=== PATIENT | male | born 1990 | race Caucasian/White ===

== ENCOUNTER 2018-04-15 11:02 | Emergency (ER) | payer SELFPAY ==
[2018-04-15 11:06] VITALS: Ht 172.7 cm
[2018-04-15] MEDS ORDERED: OXYCODONE HCL IR 5 MG TAB (IMMEDIATE RELEASE) PO STA (11:12)
--- NOTE | 2018-04-15 12:06 | DIAGNOSTIC IMAGING REPORT ---
RIGHT KNEE 2 VIEWS HISTORY: R knee trauma COMPARISON: None. FINDINGS: There is no fracture or dislocation. Prepatellar soft tissue swelling and a small knee effusion. Mild thickening at the distal quadriceps tendon. No radiopaque foreign bodies. IMPRESSION: 1. No fracture or dislocation within the right knee. 2. Prepatellar soft tissue thickening and a small knee effusion. 3. Mild thickening of the distal quadriceps tendon. This could represent a quadriceps tendon injury. Electronically signed by: Travis Ngo M.D. 04/15/2018 12:05 PM Dictated Date/Time: 04/15/2018 12:03 PM
[2018-04-15] MEDS ORDERED: OXYC-90 PO (12:23)
--- NOTE | 2018-04-15 12:39 | EMERGENCY ROOM VISIT NOTE ---
History First contact with patient: 11:07 Chief Complaint: LEG PAIN,LEG INJURY Stated Complaint: TRUSS FELL ON LEG History of Present Illness The patient is a 27 year old male who presents to the Emergency Room with complaints of severe right knee pain. The patient reports that he was helping to set a truss when a support board collapsed, and the truss fell approximately 15 feet onto the right knee. The patient reports mild left knee discomfort as well, but is able to apply weight to the leg without any pain. He denies any injury to the head, neck, chest or abdomen. He reports mild discomfort in the left flank region. He denies any focal back or rib pain. He denies any paresthesias or numbness of the right foot or toes, and rates his discomfort an 8 out of 10. Tetanus immunization is up-to-date. Review of Systems 10 system review was performed and was negative except for pertinent positives and negatives as indicated in history of present illness Past Medical/Surgical History Medical Problems: (1) No significant past medical history Surgical Problems: (1) No history of previous surgery Family History Unremarkable Social History Smoking Status: Never Smoker Alcohol Use: none Marital Status: Housing Status: lives with family Occupation Status: employed Current/Historical Medications Scheduled PRN Oxycodone Ir (Roxicodone Ir), 1 TAB PO Q4H PRN for Pain Physical Exam Vital Signs Date Time Temp Pulse Resp B/P (MAP) Pulse Ox O2 Delivery O2 Flow Rate FiO2 04/15/18 11:06 36.8 97 20 119/67 94 Room Air Physical Exam CONSTITUTIONAL: Healthy and well nourished. Alert and oriented X 3 with positive affect. Patient appears in moderate discomfort. HEENT: Normocephalic, atraumatic. Pupils equal, round and reactive. NECK: Full active range of motion without discomfort. RESPIRATORY: Clear to auscultation bilaterally with no wheezing, crackles, rhonchi or stridor. CARDIOVASCULAR: Regular rate and rhythm with no murmurs, rubs or gallops. GASTROINTESTINAL: Bowel sounds present in all quadrants. Soft and nontender to palpation. MUSCULOSKELETAL: Examination shows a 3+ right joint effusion. There is a superficial abrasion to the anterior knee. I was unable to perform any range of motion because of discomfort. He has mild tenderness to palpation over the medial and lateral joint line. Varus and valgus stress does not show any obvious instability. Quadriceps and patellar tendons are palpable, with no focal tenderness to palpation over the quadriceps or patellar tendons. Patient has no tenderness to palpation about the mid to distal femur or proximal leg region. Pedal pulses are intact. Patient does have mild tenderness to palpation over the left flank soft tissue. He has no tenderness to palpation across the posterior ribs or central thoracolumbar spine. Examination of the left knee shows mild erythema across the anterior aspect of the knee, otherwise has no pain with flexion and extension. Ligamentous exam is normal. INTEGUMENTARY: No rash or other significant dermatologic conditions noted. NEUROLOGIC: Right foot and toes are sensory intact. Medical Decision & Procedures ER Provider Diagnostic Interpretation: My interpretation of right knee x-rays shows a joint effusion without any obvious fracture or dislocation. Radiologist does question thickening of the quadriceps tendon. Radiologist report is as follows: RIGHT KNEE 2 VIEWS HISTORY: R knee trauma COMPARISON: None. FINDINGS: There is no fracture or dislocation. Prepatellar soft tissue swelling and a small knee effusion. Mild thickening at the distal quadriceps tendon. No radiopaque foreign bodies. IMPRESSION: 1. No fracture or dislocation within the right knee. 2. Prepatellar soft tissue thickening and a small knee effusion. 3. Mild thickening of the distal quadriceps tendon. This could represent a quadriceps tendon injury. Medications Administered Medications (Trade) Dose Ordered Sig/Perla Route Start Time Stop Time Status Last Admin Dose Admin Oxycodone HCl (Roxicodone Immediate Rel Tab) 10 mg NOW STAT PO 04/15/18 11:12 04/15/18 11:13 DC 04/15/18 11:25 10 MG ED Course Patient history and physical exam were performed. Nurse's notes were reviewed. Vital signs were reviewed and were normal. The patient was administered OxyIR 10 mg for pain. He refused any intramuscular or intravenous analgesics. An ice pack was also applied. X-rays of the right knee were normal. The radiologist questions thickening of the distal quadriceps tendon region. It is noted that the patient has no tenderness to palpation or obvious palpable defect over this region. A knee immobilizer and crutches were dispensed. The patient was encouraged to intermittently apply ice and elevate the knee for swelling. Ibuprofen and Tylenol in alternating fashion for baseline pain relief. The patient was provided a prescription for OxyIR as needed for breakthrough pain. The patient was given contact information for [facility] for further follow-up and management. The patient voiced understanding of all discharge instructions, was happy with plan of care, and rated his discomfort a 3 out of 10 at the time of discharge. Medical Decision Blood Pressure Screening Patient's blood pressure: Normal blood pressure Impression Primary Impression: Right knee injury Additional Impressions: Back contusion Contusion of left knee Departure Information Prescriptions Oxycodone Ir (Roxicodone Ir) 5 Mg Tab 1 TAB PO Q4H Y for Pain, #15 TAB For Initial Treatment Prov: Francisco J Do PA 04/15/18 Patient Instructions [facility] Problem Qualifiers
[2018-04-15 12:54] VITALS: BP 139/65; PULSE 85; TEMP 36.8; O2SAT 96
== END 2018-04-15 13:08 | disposition home or self-care (01) ==
LOC: C.EDB 11:04 → C.EDD 13:08
DX: S89.91XA Unspecified injury of right lower leg, initial encounter (principal); S80.02XA Contusion of left knee, initial encounter; S30.1XXA Contusion of abdominal wall, initial encounter; W20.8XXA Other cause of strike by thrown, projected or falling object, initial encounter; Y93.H3 Activity, building and construction

== ENCOUNTER → 2018-04-29 | Day surgery (SDC) | payer OTHER ==
[2018-04-24 14:03] VITALS: Ht 175.3 cm; Wt 81.8 kg
[~2018-04-29] VITALS: Ht 175.3 cm; Wt 81.8 kg
[~2018-04-29] MED LIST: ATROPINE SULFATE 0.1 MG/ML 5ML SYR IV PRN; BUPIVACAINE/EPINEPHRINE 0.5% MPF 1:200,000 30 ML VIAL ONE; CEFAZOLIN 2000MG IV PUSH 15 ML IV SCH; CEFAZOLIN SOD 1 GM VIAL ONE; CEFAZOLIN SOD 1000MG/7.5 ML IV PUSH IV ONE; DEXAMETHASONE SOD INJ 4 MG/ML VIAL ONE; EpHEDrine SULFATE INJ 50 MG/ML AMP IV PRN; EpINEphrine HCL INJ 1 MG/ML 1ML SYRINGE ONE; EpINEphrine INJ 1MG/ML AMP 1 MG/ML AMP ONE; FENTANYL CITRATE INJ 50 MCG/1 ML 2 ML VIAL IV PRN; FENTANYL CITRATE INJ 50 MCG/1 ML 2 ML VIAL ONE; IBUP-1449 PO; KETO10TA PO; KETOROLAC TROMETHAMINE 30 MG/ML VIAL ONE; LACTATED RINGER'S 1000ML 1,000 ML IV SCH; LIDOCAINE HCL 2% 2 ML VIAL (20MG/ML) ONE; MIDAZOLAM HCL 1 MG/ML 2ML VIAL ONE; MULT-506 PO; ONDANSETRON INJ 2 MG/ML 2 ML VIAL IV PRN; ONDANSETRON INJ 2 MG/ML 2 ML VIAL ONE; OXYC-90 PO; OXYCODONE/ACETAMINOPHEN 5-325 TAB PO PRN; PROPOFOL IV EMULSION 10 MG/ML 20 ML VIAL ONE; ROPIVACAINE 0.5% 5 MG/ML 30 ML VIAL ONE; SODIUM CHLORIDE 0.9% 1000ML 1,000 ML IV SCH
--- NOTE | 2018-04-29 11:41 | History & Physical Bridge - SC ---
H&P Re-Evaluation Bridge Note: I have examined the patient, reviewed the History & Physical and in the interval since the performance of the History & Physical I have noted the following changes of clinical significance: No changes noted
--- NOTE | 2018-04-29 13:26 | [facility] Post Operative Brief Note ---
Immediate Operative Summary Operative Date Apr 29, 2018. Pre-Operative Diagnosis Right Knee Lateral Meniscus Tear, Medial Collateral Ligament Tear, Patella Tendon Rupture, ACL Tear Post-Operative Diagnosis Right Knee Lateral Meniscus Tear, Medial Collateral Ligament Tear, Patella Tendon Rupture, ACL Tear, Partial PCL Tear, Grade 4 Chondral injury to LFC Procedure(s) Performed Right Knee Arthroscopy, Partial Lateral Meniscectomy, Patella Tendon Repair Surgeon Dr. Ayala Archivist Surgeon(s) Yasmani Frederick PA-C Estimated Blood Loss Minimal Findings Consistent with Post-Op Diagnosis Specimens None Drains None Anesthesia Type General Complication(s) none Disposition Accompanied Pt To Recovery: no Disposition: Recovery Room / PACU
--- NOTE | 2018-04-29 13:31 | Discharge Instructions-SurgCtr ---
Discharge Instructions Date of Service Apr 29, 2018. Visit Reason for Visit: Right Knee Lateral Meniscal Tear, Patella Tendon Discharge Discharge Diagnosis / Problem: right knee lateral meniscus tear, ACL/MCL tear, patella tendon tear Discharge Goals Goal(s): Decrease discomfort, Improve function, Therapeutic intervention Medications Stopped Medications Name(s): natural healing products Activity Recommendations Activity Limitations: per Instructions/Follow-up section Weightbearing Status: Right weightbearing (as tolerated with brace. Do not bend knee ) Anesthesia . Post Anesthesia Instructions: If you have had General Anesthesia or IV Sedation: * Do not drive today. * Resume driving when surgeon permits. * Do not make important decisions or sign legal documents today. * Call surgeon for: 1. Temperature elevations greater than 101 degrees F. 2. Uncontrollable pain. 3. Excessive bleeding. 4. Persistent nausea and vomiting. 5. Medication intolerance (nausea, vomiting or rash). * For nausea and vomiting use only clear liquids such as: tea, soda, bouillon until nausea subsides, then gradually increase diet as tolerated. * If you have any concerns or questions, call your surgeon's office. If physician is unavailable and it is an emergency, call 911 or go to the nearest emergency room. . Instructions / Follow-Up Instructions / Follow-Up MEDICATIONS: * Resume previous medications unless instructed otherwise by your surgeon. * Always take pain medication on a full stomach or with food to avoid upset stomach. * Do not drink alcohol or drive while taking narcotics. * Ibuprofen or Tylenol may be taken if narcotic not needed. No ibuprofen while taking toradol SPECIAL CARE INSTRUCTIONS: __ None _x_ Keep extremity elevated and iced x 48 hours; apply ice 20-30 minutes 8-10 times/day. May remove at night. _x_ Crutches __ May discard when able _x_ Brace _x_ 24 hrs/day (DO NOT bend knee) __ Remove at night _x_ Dressing __ Maintain until seen in office, may shower with plastic over site _x_ Remove dressings in 48 hours and then may shower _x_ Cover incisions after showering __ Do not remove steri-strips Call physician if chills or temperature rises above 102 degrees or pain unrelieved by prescribed pain medications. Office [phone] follow up in 2 weeks Diet Recommendations Home Diet: resume previous diet Procedures Procedures Performed: Right Knee Arthroscopy, Partial Lateral Meniscectomy, Patella Tendon Repair Pending Studies Studies pending at discharge: no Medical Emergencies . Who to Call and When: Medical Emergencies: If at any time you feel your situation is an emergency, please call 911 immediately. . Non-Emergent Contact Non-Emergency issues call your: Surgeon . . "Provider Documentation" section prepared by Julio Frederick. .
--- NOTE | 2018-04-29 14:14 | Anesthesia Progress Nt - [facility] ---
Anesthesia Post Op Note Date & Time Apr 29, 2018 at 14:13 Vital Signs Pain Intensity: 6.0 Vital Signs Past 12 Hours Date Time Temp Pulse Resp B/P (MAP) Pulse Ox O2 Delivery O2 Flow Rate FiO2 04/29/18 13:38 37.3 88 16 150/96 100 Mask 6 04/29/18 10:52 37.0 71 16 118/61 (80) 97 Room Air Notes Mental Status: alert / awake / arousable, participated in evaluation Pt Amnestic to Procedure: Yes Nausea / Vomiting: adequately controlled Pain: adequately controlled Airway Patency, RR, SpO2: stable & adequate BP & HR: stable & adequate Hydration State: stable & adequate Anesthetic Complications: no major complications apparent
[2018-04-29 14:18] VITALS: TEMP 36.9
[2018-04-29 14:47] VITALS: BP 146/90; PULSE 67; O2SAT 97
--- NOTE | 2018-04-29 16:15 | OPERATIVE REPORT ---
DATE OF OPERATION: 04/29/2018 SURGEON: Fredis Ayala M.D. GLOBAL SOURCING MANAGER: NAZ Lux PREOPERATIVE DIAGNOSES: 1. Right knee partial patella tendon rupture. 2. Right knee bucket handle lateral meniscus tear. 3. Right knee ACL tear. 4. Right knee MCL tear. 5. Right knee grade 1 PCL injury. POSTOPERATIVE DIAGNOSES: 1. Right knee bucket handle lateral meniscus tear. 2. Right knee ACL tear. 3. Right knee partial patella tendon tear. 4. Right knee MCL tear. 5. Grade 1 PCL tear. 6. Large linear osteochondral lesion to the lateral femoral condyle. OPERATIVE INDICATIONS: The patient is a 27-year-old [facility] gentleman who injured his knee just about two weeks ago. 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 He had acute onset of pain, deformity, discomfort and swelling. He was seen in clinic and his knee was really swollen and difficult to diagnose. Seen by my partner Dr. Zamora. Over time with the imaging and MRI as well as clinical exam revealed a partial or near-complete patellar tendon rupture, bucket handle lateral meniscus tear, ACL tear, and an MCL tear off the femur. There was a question of possible a mild PCL injury as well. The patient was now indicated for surgical treatment of the critical portions of this which are the lateral meniscus tear and the patella tendon tear. I felt likely that the remainder of these injuries would likely heal with conservative treatment and could be addressed later if needed. OPERATIVE FINDINGS: Examination of the patient's knee under anesthesia revealed a large knee effusion. His range of motion passively was 0-135. He had a positive Igor and agreed with a soft endpoint and a grade 2 pivot. He had grade 1 posterior drawer test. He did have valgus laxity with a fairly good endpoint. No varus instability. Aneta's is negative for mechanical symptoms. OPERATIVE PROCEDURE: The patient taken to the operating room, identified and placed on the operative table in supine position. All contact areas were appropriately padded. IV antibiotics was provided by anesthesia team. General anesthetic was implemented by anesthesia team. A right thigh tourniquet was then placed. The right knee was then examined under anesthesia. The findings are as described. The right leg was then prepped and draped in usual sterile fashion. The right leg was elevated, exsanguinated with Esmarch and tourniquet was placed at 300 mmHg. Routine right knee arthroscopy was then performed through the anteromedial and anterolateral portals. A superolateral flow portal was established for outflow. He had a large hemarthrosis. It took a little while to get rid of the hemarthrosis. I then examined the knee. Medial meniscus was intact. There was clear gapping in the medial compartment. There was a large bucket handle lateral meniscus tear. I tried to reduce this, but could not reduce it. Therefore, I detached anteriorly and then was able to push this posteriorly and then reduce it. I then detached the meniscus posteriorly and removed it. I spent some time trimming up the remainder of the meniscus. It was essentially missing the entire lateral meniscus. Once this was complete, I examined the ACL and make sure it was not impinging and it was clearly torn, but not out of position or flipped anteriorly or cause any impingement. There was a large osteochondral lesion lateral femoral condyle, but no loose cartilage or bone that could be addressed. The scope was then removed from the knee. The anterior lateral portal was closed with 3-0 Prolene suture in a simple fashion. Attention was then drawn to the patella tendon repair. The anterior medial portal was then extended superiorly and inferiorly. Sharp dissection was carried through subcutaneous tissue down to the level of the extensor mechanism. I mobilized the subcutaneous tissue. I then identified the partial patellar tendon rupture. That was not easy to identify as the lateral portion was still intact and then these fibers were wavy and shortened. I debrided the intervening tissue between the torn tendon and the patella. I debrided the base of the patella itself to allow for reattachment. I then placed a #5 FiberWire suture in a Lyons fashion up and down the medial side of the patellar tendon. I then passed through drill holes in the patella, one through the central portion and one through the medial side. The patella was then pulled down and tied and the patellar tendon was reapproximated. I could then flex the knee to 90 degrees without any gapping, but that was about the maximum. Attention was then drawn toward closing. The wound was irrigated with copious amounts of normal saline. I injected the knee with 30 mL of 0.5% ropivacaine with epinephrine. The superior lateral outflow portal was then closed with Prolene suture. I then irrigated the anterior wound extensively. I injected locally with 30 mL of 0.5% Marcaine with epinephrine. The tourniquet was then let down for a tourniquet time of 55 minutes. Hemostasis was assured with use of electrocautery. Subcutaneous tissue was then closed with 2-0 Vicryl suture in buried interrupted fashion. Skin was closed with 3-0 nylon suture in a horizontal mattress fashion. The leg was then cleaned and dried and a sterile dressing of Xeroform, 4 x 4's, sterile cast padding and Mamadou bandage were applied followed by a cold pack and a knee immobilizer. The patient then brought out of general anesthesia and transferred to the recovery room in stable condition. The patient tolerated the procedure well with no complications. All needle and sponge counts were correct at the end of the operation. ARTHROSCOPIC FINDINGS: Arthroscopic findings revealed a large hemarthrosis. The undersurface of patella and trochlea were fairly normal. In the intercondylar notch, the ACL was intact. I could not really see much injury to the PCL due to the synovium. In the medial compartment, the articular surface was normal and the meniscus was intact. There was gapping of the medial compartment due to the MCL sprain. There was fairly good endpoint. In the lateral compartment, there was a very large displaced bucket nail tear of the entire lateral meniscus, which was slipped into the notch. It was fairly tight. He did have a complete osteochondral gouge to the medial aspect of the lateral femoral condyle. There were no loose pieces. I attest to the content of the Intraoperative Record and any orders documented therein. Any exception s are noted below.
== END | disposition home or self-care (01) ==
LOC: X.SURG 10:35
PROVIDERS: ATTEND Orthopaedic Surgery Sports Medicine
DX: S83.251A Bucket-handle tear of lateral meniscus, current injury, right knee, initial encounter (principal); S83.511A Sprain of anterior cruciate ligament of right knee, initial encounter; S86.811A Strain of other muscle(s) and tendon(s) at lower leg level, right leg, initial encounter; S83.411A Sprain of medial collateral ligament of right knee, initial encounter; S83.521A Sprain of posterior cruciate ligament of right knee, initial encounter; M89.9 Disorder of bone, unspecified; W20.8XXA Other cause of strike by thrown, projected or falling object, initial encounter